=== PATIENT | female | born 1990 | race African-American/Black ===

== ENCOUNTER 2018-02-17 09:07 | Observation (INO) | payer SELFPAY ==
[~2018-02-17] VITALS: Ht 162.6 cm; Wt 62.7 kg
[~2018-02-17 09:07] MED LIST: ACETTAB3 OR; AMOXICILLIN500 MG OR; AMOXICILLIN500 MG PO; AMOXICILLIN875 MG OR; CIPROFLOXACN500 MG PO; DICLEGIS1 TAB PO; DOXYCYCL HYC100 M3 PO; FERROUS SULF325 M1 PO; IBUPROFEN600 MG PO; IMPLANON68 MG SC; K-PHO1 PO; LORTAB 7.5 PO; MACRODANTIN100 MG PO; METHERGINE0.2 MG PO; NAPROSYN500 MG OR; NO CURRENT MEDS; NO MEDS; PAROXETINE10 MG PO; PHENERGAN25 MG/TAB PO; PRENATAL1 TA1; PREVACID30 M1 PO; PROMETHAZINE25 M1 RE; ULTRAM50 M1 PO; ZOFRAN ODT4 MG PO
--- NOTE | 2018-02-17 09:08 | NUR ---
to room 12 with steady gait
--- NOTE | 2018-02-17 09:31 | NUR ---
PT REPORTS NOW FEELING BETTER, PHONATING CLEARLY AND MANAGING SECRETIONS WITHOUT DIFFICULTY
--- NOTE | 2018-02-17 09:46 | NUR ---
REPORT TO MT DOWNS RN, CARE RELINQUISHED
[2018-02-17 09:55] LABS: IMMATURE GRANULOCYTES 0.2 % (0.0-5.0); MEAN CELL VOLUME 74.7 fL CALC (80.0-100.0); MEAN CORPUSCULAR HGB 26.4 pG CALC (26.0-32.0); MEAN CORPUSCULAR HGB CONC 35.4 g/L CALC (32.0-36.0); NEUT# 5.08 thou/uL (2.00-7.15); RED BLOOD COUNT 4.58 mill/uL (4.20-5.60)
[2018-02-17 09:57] LABS: HEMATOCRIT 34.2 % (37.0-47.0); HEMOGLOBIN 12.1 g/dl (12.0-16.0)
--- NOTE | 2018-02-17 10:11 | NUR ---
PT STATES IMPROVEMENT IN STATUS, NO WORSENING.
[2018-02-17 10:22] LABS: ANION GAP 17 (6-22 (CALC)); BUN 16 mg/dL (7-17); BUN/CREATININE RATIO 29 (12-20 (CALC)); CARBON DIOXIDE 24 mmol/l (22-30); CHLORIDE 104 mmol/l (95-108); CREATININE 0.6 mg/dL (0.5-1.0); GFR > 60 ML/MIN (>=60 (CALC)); GFR FOR AFR.AMER. > 60 ML/MIN (>=60 (CALC)); POTASSIUM 4.2 mmol/l (3.5-5.1); SODIUM 141 mmol/l (137-146)
--- NOTE | 2018-02-17 11:20 | NUR ---
PT ARRIVED TO THE UNIT VIA WC, PT AMBULATED TO THE DIGITAL SCALE AND THEN TO THE BED, PT AMBULATED WITH A STRONG STEADY GAIT, PT ORIENTED TO THE ROOM, MONITORING EQUIPMENT AND CALL [place] PRIOR TO MONITORING EQUIPMENT BEING APPLIED, PT VERBALIZED UNDERSTANDING, PT A & O X3, PERRL, MINIMAL SWELLING OF THE TONGUE NOTED AT THIS TIME, WILL CONTINUE TO MONITOR PT CLOSELY FOR INCREASED SWELLING, HR 76, RESP. 20, BP 104/56, O2 100% ON RA, LUNG SOUNDS CLEAR IN ALL [place], ABD SOFT, ACTIVE BOWEL SOUNDS, STRONG RADIAL & PEDAL PULSES, 20G LAC IV, SALINE LOCKED, NO REDNESS OR DRAINAGE AT SITE, ADMISSION ASSESSMENT COMPLETE, SEE INTERVENTIONS, SAFETY MEASURES REINFORCED, CALL [place] WITHIN REACH
--- NOTE | 2018-02-17 11:27 | NUR ---
PT TAKEN TO ICU WITHOUT INCIDENT, REPORT WAS TO MANDY DOMINGUEZ.
[2018-02-17 11:42] VITALS: BP 112/61
--- NOTE | 2018-02-17 12:45 | NUR ---
SETUP UP ASSISTANCE PROVIDED WITH LUNCH TRAY
--- NOTE | 2018-02-17 14:20 | NUR ---
PT LAYING IN BED RESTING WITH EYES CLOSED, NO S/S OF DISTRESS, CALL [place] WITHIN REACH
[2018-02-17 14:23] VITALS: BP 107/61
--- NOTE | 2018-02-17 15:17 | NUR ---
PT AMBULATED TO THE BSC WITH A STRONG STEADY GAIT, NO S/S OF DISTRESS, CALL [place] WITHIN REACH
--- NOTE | 2018-02-17 15:45 | NUR ---
FAMILY AT BEDSIDE
[2018-02-17 16:32] VITALS: BP 103/59
--- NOTE | 2018-02-17 17:05 | NUR ---
PT WASHED UP & ASSISTED TO THE RECLINER WITH MAX ASSISTANCE, PT TOLERATED WELL, CALL [place] WITHIN REACH
--- NOTE | 2018-02-17 17:35 | NUR ---
SETUP ASSISTANCE PROVIDED WITH PM MEAL
[2018-02-17 18:00] VITALS: BP 99/43
--- NOTE | 2018-02-17 19:25 | NUR ---
PT. OVER TO MED/SURG AT THIS TIME. STABLE.
--- NOTE | 2018-02-17 19:28 | NUR ---
PT ARRIVED TO FLOOR VIA WHEELCHAIR WITH ICU NURSE. PT AMBULATED TO BED, VITALS OBTAINED BY CHIEF [facility] DIVISION. PT ORIENTED TO ROOM AND CALL LIGHT SYSTEM. PT DENIES PAIN. RESP EVEN AND UNLABORED. LUNGS CLEAR BILAT. ABD SOFT, ACTIVE BOWEL SOUNDS. PEDAL PULSES PALPATED BILAT. IV LAC PATENT; FLUSHED WITHOUT DIFFICULTY. PT REQUEST TO TAKE SHOWER A THIS TIME. FREQUENT ROUNDS MADE. CALL LIGHT WITHIN REACH.
[2018-02-17 19:32] VITALS: BP 107/69
[2018-02-17 23:46] VITALS: BP 112/67
--- NOTE | 2018-02-17 23:55 | NUR ---
PT SLEEPING WITH EYES CLOSED. NO DISTRESS NOTED. TELE ON. RESP EVEN AND UNLABORED. IV PATENT. CALL LIGHT WITHIN REACH.
[2018-02-18 03:51] VITALS: BP 113/64
--- NOTE | 2018-02-18 04:00 | NUR ---
PT WOKE FOR VITALS, ASSESSMENT UNCHANGED. IV PATENT, NO REDNESS OR EDEMA NOTED. TELE ON. CALL LIGHT WITHIN REACH.
--- NOTE | 2018-02-18 07:05 | NUR ---
REPORT RECEIVED FROM RICHELLE FRAGOSO;PT APPEARS TO BE SLEEPING IN SUPINE POSITION,WAKES EASILY TO VERBAL STIMULI;INTRODUCED SELF TO PT AND POC DISCUSSED;PT DENIES ANY CURRENT PAIN OR NEEDS;ENCOURAGED TO CALL FOR ASSISTANCE IF NEEDED;IV SITE PATENT;CALL LIGHT IN REACH;WILL CONTINUE TO MONITOR
[2018-02-18 08:13] VITALS: BP 109/70
--- NOTE | 2018-02-18 08:15 | NUR ---
PT RESTING IN SEMI FOWLERS POSITION;VS OBTAINED AND ASSESSMENT COMPLETED;RESPIRATIONS EVEN AND UNLABORED ON RA,CLEAR LUNG SOUNDS;ABDOMEN SOFT ON PALPATION AND ACTIVE IN ALL 4 QUADRANTS;STRONG PEDAL PULSES;#20G TO LAC INFUSING NS @ 100ML/HR,SITE APPEARS HEALTHY;NO SWELLING NOTED TO THE TONGUE AT THIS TIME;PT DENIES ANY CURRENT PAIN OR NEEDS;INSTUCTED TO CALL FOR ASSISTANCE IF NEEDED;TELE MONITOR IN PLACE;CALL LIGHT IN REACH;WILL CONTINUE TO MONITOR
[2018-02-18 11:09] VITALS: BP 116/72
--- NOTE | 2018-02-18 11:25 | NUR ---
PT RESTING IN SEMI FOWLERS POSITION;RESPIRATIONS EVEN AND UNLABORED ON RA;IV SITE PATENT AND TELE MONITORING IN PLACE;PT DENIES ANY CURRENT PAIN OR NEEDS;ASSESSMENT UNCHANGED AT THIS TIME;ENCOURAGED TO CALL FOR ASSISTANCE IF NEEDED;CALL LIGHT IN REACH;WILL CONTINUE
[2018-02-18] MEDS ORDERED: MEDDOSEPAK PO (12:04)
[2018-02-18] MEDS ORDERED: EPIPEN 2-P0.3 MG/0.3 IM (12:04)
--- NOTE | 2018-02-18 13:20 | NUR ---
ALL DISCHARGE INFORMATION PROVIDED AT THIS TIME,PRESCRIPTIONS DISCUSSED INDEPTH;ALL QUESTIONS ANSWERED;IV SITE REMOVED WITH CATHETER INTACT;PT REFUSES WHEELCHAIR FOR DISCHARGE
--- NOTE | 2018-02-18 13:28 | NUR ---
Discharge instructions given. Patient verbalizes understanding of same. Discharged in stable condition via Ambulatory to Home with family. All belongings sent with pt.
== END 2018-02-18 13:28 | disposition home or self-care (01) | DRG 916 ==
LOC: ED 09:07 → ED-I 09:24 → ED 11:00 → ICU 11:01 → MS2 19:28
PROVIDERS: Family Medicine; ADMIT Internal Medicine; ATTEND Internal Medicine
DX: T78.2XXA Anaphylactic shock, unspecified, initial encounter (principal); F17.210 Nicotine dependence, cigarettes, uncomplicated
CPT/HCPCS: G0378

== ENCOUNTER 2018-04-10 09:20 | Emergency (ER) | payer SELFPAY ==
[~2018-04-10] VITALS: Ht 162.6 cm; Wt 54.5 kg
[~2018-04-10 09:20] MED LIST changes: +EPIPEN 2-P0.3 MG/0.3 IM; +MEDDOSEPAK PO
[2018-04-10] MEDS ORDERED: AUGMENTIN875TAB PO (09:40)
[2018-04-10] MEDS ORDERED: MOTRIN400 MG PO (09:40)
[2018-04-10 10:19] VITALS: BP 125/75
== END 2018-04-10 10:22 | disposition home or self-care (01) | DRG 159 ==
LOC: ED 09:20
DX: K08.89 Other specified disorders of teeth and supporting structures (principal)

== ENCOUNTER 2018-12-02 10:21 | Emergency (ER) | payer SELFPAY ==
[~2018-12-02] VITALS: Ht 162.6 cm; Wt 59.0 kg
[~2018-12-02 10:21] MED LIST changes: +AUGMENTIN875TAB PO; +MOTRIN400 MG PO
[2018-12-02] MEDS ORDERED: AUGMENTIN875TAB PO (10:43)
[2018-12-02 11:20] VITALS: BP 127/81
== END 2018-12-02 11:20 | disposition home or self-care (01) | DRG 159 ==
LOC: ED 10:21
DX: K03.81 Cracked tooth (principal)

== ENCOUNTER 2018-12-05 12:19 | Emergency (ER) | payer SELFPAY ==
[~2018-12-05] VITALS: Ht 162.6 cm; Wt 61.4 kg
[2018-12-05 13:50] LABS: GFR > 60 ML/MIN (>=60 (CALC)); GFR FOR AFR.AMER. > 60 ML/MIN (>=60 (CALC))
[2018-12-05 16:07] VITALS: BP 066/61
== END 2018-12-05 16:12 | disposition home or self-care (01) | DRG 156 ==
LOC: ED 12:19
DX: R07.0 Pain in throat (principal); E04.9 Nontoxic goiter, unspecified
CPT/HCPCS: Q9967

== ENCOUNTER 2019-03-16 17:38 | Emergency (ER) | payer OTHER ==
[~2019-03-16] VITALS: Ht 162.6 cm; Wt 65.0 kg
[2019-03-16 18:11] LABS: HEMATOCRIT 34.2 % (37.0-47.0); HEMOGLOBIN 11.7 g/dl (12.0-16.0); IMMATURE GRANULOCYTES 0.2 % (0.0-5.0); MEAN CELL VOLUME 74.5 fL CALC (80.0-100.0); MEAN CORPUSCULAR HGB 25.5 pG CALC (26.0-32.0); MEAN CORPUSCULAR HGB CONC 34.2 g/L CALC (32.0-36.0); NEUT# 6.83 thou/uL (2.00-7.15); RED BLOOD COUNT 4.59 mill/uL (4.20-5.60); RED CELL DISTRI WIDTH 16.7 % (11.5-15.5)
[2019-03-16 18:23] LABS: ALBUMIN 4.6 g/dL (3.2-5.0); ALKALINE PHOSPHATASE 47 u/l (38-126); ANION GAP 13 (6-22 (CALC)); BILIRUBIN, TOTAL 1.2 mg/dL (0.0-1.4); BUN 8 mg/dL (7-17); BUN/CREATININE RATIO 15 (12-20 (CALC)); CARBON DIOXIDE 25 mmol/l (22-30); CHLORIDE 107 mmol/l (95-108); CREATININE 0.5 mg/dL (0.5-1.0); GFR > 60 ML/MIN (>=60 (CALC)); GFR FOR AFR.AMER. > 60 ML/MIN (>=60 (CALC)); LIPASE 77 u/l (23-300); POTASSIUM 3.6 mmol/l (3.5-5.1); SGOT/AST 57 u/l (14-36); SODIUM 141 mmol/l (137-146); TOTAL PROTEIN 8.3 g/dL (6.3-8.2)
[2019-03-16 19:16] LABS: URINE BILIRUBIN - DIPSTICK NEGATIVE (NEGATIVE); URINE BLOOD DIPSTICK NEGATIVE (NEGATIVE); URINE COLOR YELLOW; URINE GLUCOSE - DIPSTICK NEGATIVE (NEGATIVE); URINE KETONE NEGATIVE (NEGATIVE); URINE LEUK ESTERASE NEGATIVE (NEGATIVE); URINE NITRITE - DIPSTICK NEGATIVE (Negative); URINE PH 8.5 (4.5-8.0); URINE PROTEIN - DIPSTICK NEGATIVE (NEG-TRACE); URINE UROBILINOGEN - DIPSTICK 0.2 E.U./dL (0.2)
[2019-03-16 20:30] VITALS: BP 99/57
== END 2019-03-16 20:30 | disposition home or self-care (01) ==
LOC: ED 17:38
PROVIDERS: Emergency Medicine
DX: R10.13 Epigastric pain (principal); R11.2 Nausea with vomiting, unspecified

== ENCOUNTER 2019-05-29 00:56 | Emergency (ER) | payer OTHER ==
[~2019-05-29] VITALS: Ht 162.6 cm; Wt 67.0 kg
[2019-05-29] MEDS ORDERED: BENADRYL 50MG C50 MG PO (04:37)
[2019-05-29 05:00] VITALS: BP 118/64
[2019-07-12] MEDS ORDERED: PEPCID20 MG PO (20:43)
[2019-07-12] MEDS ORDERED: BENADRYL 25MG C25 MG PO (20:43)
[2019-07-12] MEDS ORDERED: MEDDOSEPAK PO (20:43)
== END 2019-05-29 05:00 | disposition home or self-care (01) ==
LOC: ED 00:56
DX: T78.40XA Allergy, unspecified, initial encounter (principal); X58.XXXA Exposure to other specified factors, initial encounter; R22.0 Localized swelling, mass and lump, head

== ENCOUNTER 2019-07-12 | Emergency (ER) | payer OTHER ==
[~2019-07-12] MED LIST changes: +BENADRYL 50MG C50 MG PO
[2019-07-12] MEDS ORDERED: BENADRYL 25MG C25 MG PO ×2 (20:43)
[2019-07-12] MEDS ORDERED: PEPCID20 MG PO ×2 (20:43)
[2019-07-12] MEDS ORDERED: MEDDOSEPAK PO ×2 (20:43)
== END 2019-07-12 20:55 | disposition home or self-care (01) ==
DX: T78.40XA Allergy, unspecified, initial encounter (principal); X58.XXXA Exposure to other specified factors, initial encounter

== ENCOUNTER 2020-01-05 12:27 | Emergency (ER) | payer OTHER ==
[~2020-01-05] VITALS: Ht 162.6 cm; Wt 60.9 kg
[~2020-01-05 12:27] MED LIST changes: +BENADRYL 25MG C25 MG PO; +PEPCID20 MG PO
[2020-01-05] MEDS ORDERED: AZITHROMYCIN500 MG PO (14:47)
[2020-01-05 15:45] VITALS: BP 111/56
== END 2020-01-05 15:45 | disposition home or self-care (01) ==
LOC: ED 12:27
DX: J02.9 Acute pharyngitis, unspecified (principal)

== ENCOUNTER 2020-01-25 16:34 | Emergency (ER) | payer OTHER ==
[~2020-01-25] VITALS: Ht 162.6 cm; Wt 75.0 kg
[~2020-01-25 16:34] MED LIST changes: +AZITHROMYCIN500 MG PO
[2020-01-25 18:38] LABS: HEMATOCRIT 30.8 % (37.0-47.0); HEMOGLOBIN 10.8 g/dl (12.0-16.0); IMMATURE GRANULOCYTES 0.3 % (0.0-5.0); MEAN CORPUSCULAR HGB 26.7 pG CALC (26.0-32.0); MEAN CORPUSCULAR HGB CONC 35.1 g/dL CAL (32.0-36.0); NEUT# 5.96 thou/uL (2.00-7.15); RED BLOOD COUNT 4.05 mill/uL (4.20-5.60); RED CELL DISTRI WIDTH 15.8 % (11.5-15.5)
[2020-01-25 18:41] LABS: URINE BILIRUBIN - DIPSTICK NEGATIVE (NEGATIVE); URINE BLOOD DIPSTICK NEGATIVE (NEGATIVE); URINE COLOR YELLOW; URINE GLUCOSE - DIPSTICK NEGATIVE (NEGATIVE); URINE KETONE NEGATIVE (NEGATIVE); URINE LEUK ESTERASE TRACE (NEGATIVE); URINE NITRITE - DIPSTICK NEGATIVE (Negative); URINE PH 7.5 (4.5-8.0); URINE PROTEIN - DIPSTICK NEGATIVE (NEG-TRACE); URINE SPECIFIC GRAVITY 1.025
[2020-01-25 18:54] LABS: ALBUMIN 4.8 g/dL (3.2-5.0); ALKALINE PHOSPHATASE 46 u/l (38-126); ANION GAP 12 (6-22 (CALC)); BILIRUBIN, TOTAL 1.3 mg/dL (0.0-1.4); BUN 6 mg/dL (7-17); BUN/CREATININE RATIO 12 (12-20 (CALC)); CARBON DIOXIDE 24 mmol/l (22-30); CHLORIDE 102 mmol/l (95-108); CREATININE 0.5 mg/dL (0.5-1.0); GFR > 60 ML/MIN (>=60 (CALC)); GFR FOR AFR.AMER. > 60 ML/MIN (>=60 (CALC)); LIPASE 69 u/l (23-300); POTASSIUM 3.5 mmol/l (3.5-5.1); SGOT/AST 19 u/l (14-36); SODIUM 134 mmol/l (137-146); TOTAL PROTEIN 7.9 g/dL (6.3-8.2)
[2020-01-25] MEDS ORDERED: ONDANSETRON4 MG PO (19:41)
[2020-01-25 20:05] VITALS: BP 118/74
== END 2020-01-25 20:05 | disposition home or self-care (01) ==
LOC: ED 16:34
PROVIDERS: Student in an Organized Health Care Education/Training Program
DX: O21.9 Vomiting of pregnancy, unspecified (principal); Z3A.01 Less than 8 weeks gestation of pregnancy; Z20.828 Contact with and (suspected) exposure to other viral communicable diseases

== ENCOUNTER 2020-07-13 11:42 | Emergency (ER) | payer OTHER ==
[~2020-07-13] VITALS: Ht 170.2 cm; Wt 63.6 kg
[~2020-07-13 11:42] MED LIST changes: +ONDANSETRON4 MG PO
[2020-07-13 12:18] LABS: HEMATOCRIT 31.1 % (37.0-47.0); HEMOGLOBIN 10.8 g/dl (12.0-16.0); IMMATURE GRANULOCYTES 0.2 % (0.0-5.0); MEAN CORPUSCULAR HGB 26.4 pG CALC (26.0-32.0); MEAN CORPUSCULAR HGB CONC 34.7 g/dL CAL (32.0-36.0); NEUT# 3.58 thou/uL (2.00-7.15); RED BLOOD COUNT 4.09 mill/uL (4.20-5.60); RED CELL DISTRI WIDTH 14.6 % (11.5-15.5)
[2020-07-13 12:29] LABS: ANION GAP 9 (6-22 (CALC)); BUN 8 mg/dL (7-17); BUN/CREATININE RATIO 13 (12-20 (CALC)); CARBON DIOXIDE 23 mmol/l (22-30); CHLORIDE 108 mmol/l (95-108); CREATININE 0.6 mg/dL (0.5-1.0); GFR > 60 ML/MIN (>=60 (CALC)); GFR FOR AFR.AMER. > 60 ML/MIN (>=60 (CALC)); POTASSIUM 3.3 mmol/l (3.5-5.1); SODIUM 137 mmol/l (137-146)
[2020-07-13 15:08] VITALS: BP 118/73
== END 2020-07-13 15:11 | disposition home or self-care (01) ==
LOC: ED 11:42
PROVIDERS: Family Medicine
DX: R07.9 Chest pain, unspecified (principal)

== ENCOUNTER 2020-12-26 10:06 | Emergency (ER) | payer OTHER ==
[~2020-12-26] VITALS: Ht 170.2 cm; Wt 70.0 kg
[2020-12-26] MEDS ORDERED: CYCLOBENZAPR5 MG PO (12:17)
[2020-12-26 12:24] VITALS: BP 121/79
== END 2020-12-26 12:24 | disposition home or self-care (01) | DRG 204 ==
LOC: ED 10:06
DX: R07.81 Pleurodynia (principal); M54.6 Pain in thoracic spine; M54.5 Low back pain; V43.53XA Car driver injured in collision with pick-up truck in traffic accident, initial encounter

== ENCOUNTER 2021-01-25 16:02 | Emergency (ER) | payer OTHER ==
[~2021-01-25] VITALS: Ht 170.2 cm; Wt 65.9 kg
[~2021-01-25 16:02] MED LIST changes: +CYCLOBENZAPR5 MG PO
[2021-01-25 17:48] VITALS: BP 108/79
== END 2021-01-25 17:48 | disposition home or self-care (01) ==
LOC: ED 16:02
DX: S80.11XA Contusion of right lower leg, initial encounter (principal); W20.8XXA Other cause of strike by thrown, projected or falling object, initial encounter; Y92.512 Supermarket, store or market as the place of occurrence of the external cause

== ENCOUNTER 2021-02-25 10:37 | Emergency (ER) | payer OTHER ==
[2021-02-25 11:31] LABS: IMMATURE GRANULOCYTES 0.1 % (0.0-5.0); MEAN CELL VOLUME 75.4 fL CALC (80.0-100.0); MEAN CORPUSCULAR HGB 26.1 pG CALC (26.0-32.0); MEAN CORPUSCULAR HGB CONC 34.6 g/dL CAL (32.0-36.0); NEUT# 4.7 thou/uL (2.00-7.15); RED BLOOD COUNT 5.05 mill/uL (4.20-5.60); RED CELL DISTRI WIDTH 16.9 % (11.5-15.5)
[2021-02-25 11:38] LABS: HEMATOCRIT 38.1 % (37.0-47.0); HEMOGLOBIN 13.2 g/dl (12.0-16.0)
[2021-02-25 11:49] LABS: ALKALINE PHOSPHATASE 51 u/l (38-126); AMYLASE 101 u/l (30-110); ANION GAP 21 (6-22 (CALC)); BUN 10 mg/dL (7-17); BUN/CREATININE RATIO 17 (12-20 (CALC)); CARBON DIOXIDE 20 mmol/l (22-30); CHLORIDE 103 mmol/l (95-108); CREATININE 0.6 mg/dL (0.5-1.0); GFR > 60 ML/MIN (>=60 (CALC)); GFR FOR AFR.AMER. > 60 ML/MIN (>=60 (CALC)); LIPASE 72 u/l (23-300); POTASSIUM 3.6 mmol/l (3.5-5.1); SGOT/AST 28 u/l (14-36); SODIUM 140 mmol/l (137-146); TOTAL PROTEIN 9.2 g/dL (6.3-8.2)
[2021-02-25 11:51] LABS: HCG SERUM/URINE (NEG/POS) NEGATIVE (NEGATIVE)
[2021-02-25 11:55] LABS: BILIRUBIN, TOTAL 2.1 mg/dL (0.0-1.4)
[2021-02-25 12:49] VITALS: BP 121/62
[2021-02-25] MEDS ORDERED: PREVACID30 M3 PO (13:24)
[2021-02-25] MEDS ORDERED: ONDANSETRON4 MG PO (13:24)
[2021-02-25 14:13] LABS: URINE BILIRUBIN - DIPSTICK NEGATIVE (NEGATIVE); URINE BLOOD DIPSTICK TRACE-INTACT (NEGATIVE); URINE COLOR YELLOW; URINE GLUCOSE - DIPSTICK NEGATIVE (NEGATIVE); URINE KETONE 40 mg/dL (NEGATIVE); URINE LEUK ESTERASE NEGATIVE (NEGATIVE); URINE PROTEIN - DIPSTICK NEGATIVE (NEG-TRACE); URINE UROBILINOGEN - DIPSTICK 0.2 E.U./dL (0.2)
[2021-02-25 14:14] LABS: URINE NITRITE - DIPSTICK NEGATIVE (Negative)
== END 2021-02-25 14:30 | disposition home or self-care (01) ==
LOC: ED 10:37
PROVIDERS: Emergency Medicine
DX: K29.70 Gastritis, unspecified, without bleeding (principal); F17.200 Nicotine dependence, unspecified, uncomplicated; Z20.822 Contact with and (suspected) exposure to COVID-19
CPT/HCPCS: Q9967; S0164

== ENCOUNTER 2021-07-17 07:33 | Emergency (ER) | payer OTHER ==
[~2021-07-17] VITALS: Ht 170.2 cm; Wt 67.0 kg
[~2021-07-17 07:33] MED LIST changes: +PREVACID30 M3 PO
[2021-07-17 08:22] LABS: URINE BILIRUBIN - DIPSTICK NEGATIVE (NEGATIVE); URINE BLOOD DIPSTICK NEGATIVE (NEGATIVE); URINE COLOR YELLOW; URINE GLUCOSE - DIPSTICK NEGATIVE (NEGATIVE); URINE KETONE NEGATIVE (NEGATIVE); URINE LEUK ESTERASE NEGATIVE (NEGATIVE); URINE PROTEIN - DIPSTICK NEGATIVE (NEG-TRACE)
[2021-07-17 08:23] LABS: URINE NITRITE - DIPSTICK NEGATIVE (Negative)
[2021-07-17] MEDS ORDERED: ZPAK PO (08:37)
[2021-07-17] MEDS ORDERED: ROBITUSSIN AC10 ML PO (08:37)
[2021-07-17] MEDS ORDERED: ONDANSETRON4 MG PO (08:37)
[2021-07-17 08:40] VITALS: BP 103/65
== END 2021-07-17 08:51 | disposition home or self-care (01) ==
LOC: ED 07:33
PROVIDERS: Emergency Medicine
DX: U07.1 COVID-19 (principal); F17.200 Nicotine dependence, unspecified, uncomplicated

== ENCOUNTER 2021-07-19 09:42 | Emergency (ER) | payer OTHER ==
[~2021-07-19] VITALS: Ht 170.2 cm; Wt 65.9 kg
[~2021-07-19 09:42] MED LIST changes: +ROBITUSSIN AC10 ML PO; +ZPAK PO
[2021-07-19 11:26] LABS: HEMATOCRIT 38.9 % (37.0-47.0); HEMOGLOBIN 13.7 g/dl (12.0-16.0); IMMATURE GRANULOCYTES 0.2 % (0.0-5.0); MEAN CELL VOLUME 73.8 fL CALC (80.0-100.0); MEAN CORPUSCULAR HGB CONC 35.2 g/dL CAL (32.0-36.0); NEUT# 2.76 thou/uL (2.00-7.15); RED BLOOD COUNT 5.27 mill/uL (4.20-5.60); RED CELL DISTRI WIDTH 15.8 % (11.5-15.5)
[2021-07-19 11:31] LABS: ALBUMIN 4.6 g/dL (3.2-5.0); ALKALINE PHOSPHATASE 49 u/l (38-126); BUN 13 mg/dL (7-17); BUN/CREATININE RATIO 19 (12-20 (CALC)); CHLORIDE 102 mmol/l (95-108); CREATININE 0.7 mg/dL (0.5-1.0); GFR > 60 ML/MIN (>=60 (CALC)); GFR FOR AFR.AMER. > 60 ML/MIN (>=60 (CALC)); POTASSIUM 3.3 mmol/l (3.5-5.1); SGOT/AST 25 u/l (14-36); SODIUM 138 mmol/l (137-146); TOTAL PROTEIN 8.7 g/dL (6.3-8.2)
[2021-07-19 11:36] LABS: ANION GAP 11 (6-22 (CALC)); BILIRUBIN, TOTAL 0.9 mg/dL (0.0-1.4); CARBON DIOXIDE 28 mmol/l (22-30)
[2021-07-19] MEDS ORDERED: ZOFRAN4 M1 PO (12:02)
[2021-07-19 12:50] VITALS: BP 125/81
== END 2021-07-19 12:15 | disposition home or self-care (01) ==
LOC: ED 09:42
PROVIDERS: Family Medicine
DX: U07.1 COVID-19 (principal)

== ENCOUNTER 2023-04-03 07:49 | Emergency (ER) | payer OTHER ==
[2023-04-03] VITALS (18 sets, daily range): BP systolic 86–113; BP diastolic 43–82
[~2023-04-03] VITALS: Ht 170.2 cm; Wt 58.9 kg
[~2023-04-03 07:49] MED LIST changes: +ZOFRAN4 M1 PO
[2023-04-03 08:56] LABS: BASO% 1.1 % (0-3); EOS% 7.1 % (0-8); HEMATOCRIT 34.4 % (37.0-47.0); HEMOGLOBIN 12.1 g/dl (12.0-16.0); IMMATURE GRANULOCYTES 0.1 % (0.0-5.0); LYMPH% 25.4 % (15-41); MEAN CELL VOLUME 74.1 fL CALC (80.0-100.0); MEAN CORPUSCULAR HGB 26.1 pG CALC (26.0-32.0); MEAN CORPUSCULAR HGB CONC 35.2 g/dL CAL (32.0-36.0); MONO% 6.4 % (2-13); NEUT# 4.47 thou/uL (2.00-7.15); NEUT% 59.9 % (42-76); RED BLOOD COUNT 4.64 mill/uL (4.20-5.60); RED CELL DISTRI WIDTH 15.9 % (11.5-15.5)
[2023-04-03 09:11] LABS: ALBUMIN 4.9 g/dL (3.2-5.0); ALKALINE PHOSPHATASE 41 u/l (38-126); BUN 17 mg/dL (7-17); BUN/CREATININE RATIO 30 (12-20 (CALC)); CHLORIDE 105 mmol/l (95-108); CREATININE 0.6 mg/dL (0.5-1.0); GFR FOR AFR.AMER. > 60 ML/MIN (>=60 (CALC)); GFR OTHER RACES > 60 ML/MIN (>=60 (CALC)); POTASSIUM 3.6 mmol/l (3.5-5.1); SGOT/AST 25 u/l (14-36); SODIUM 139 mmol/l (137-146); TOTAL PROTEIN 8.3 g/dL (6.3-8.2)
[2023-04-03 09:12] LABS: ANION GAP 16 (6-22 (CALC)); BILIRUBIN, TOTAL 2.2 mg/dL (0.02-1.3); CARBON DIOXIDE 22 mmol/l (22-30)
[2023-04-03] MEDS ORDERED: ZOFRAN4 MG/TAB PO (11:20)
== END 2023-04-03 12:00 | disposition home or self-care (01) ==
LOC: ED 07:49
PROVIDERS: Family Medicine
DX: R11.0 Nausea (principal); K02.9 Dental caries, unspecified; E86.0 Dehydration; Z86.16 Personal history of COVID-19; Z20.822 Contact with and (suspected) exposure to COVID-19

== ENCOUNTER 2024-07-16 20:20 | Emergency (ER) | payer OTHER ==
[~2024-07-16] VITALS: Ht 170.2 cm; Wt 68.0 kg
[~2024-07-16 20:20] MED LIST changes: +NAPROXEN500 MG PO; +ZOFRAN4 MG/TAB PO
[2024-07-16] MEDS ORDERED: SODIUM CHLORIDE 0.9% 1,000 ML IV STA (21:53)
[2024-07-16] MEDS ORDERED: PROMETHAZINE HCL 25 MG/ML AMP IV ONE (21:55)
[2024-07-16] MEDS ORDERED: ACETAMINOPHEN 500 MG TAB PO ONE (21:55)
[2024-07-16 22:23] LABS: BASO% 0.8 % (0-3); EOS% 0.2 % (0-8); IMMATURE GRANULOCYTES 0.2 % (0.0-5.0); LYMPH% 9.9 % (15-41); MEAN CORPUSCULAR HGB 24.6 pG CALC (26.0-32.0); MEAN CORPUSCULAR HGB CONC 35.5 g/dL CAL (32.0-36.0); MONO% 14.8 % (2-13); NEUT# 3.91 thou/uL (2.00-7.15); NEUT% 74.1 % (42-76); RED BLOOD COUNT 4.47 mill/uL (4.20-5.60); RED CELL DISTRI WIDTH 16.8 % (11.5-15.5)
[2024-07-16 22:33] LABS: ALBUMIN 4.8 g/dL (3.2-5.0); CREATININE 0.7 mg/dL (0.5-1.0); POTASSIUM 3.2 mmol/l (3.5-5.1); TOTAL PROTEIN 8.4 g/dL (6.3-8.2)
[2024-07-16 22:34] LABS: HCG SERUM/URINE (NEG/POS) NEGATIVE (NEGATIVE)
[2024-07-16 22:35] LABS: MEAN CELL VOLUME 69.4 fL CALC (80.0-100.0)
[2024-07-16] MEDS ORDERED: ALUM & MAG HYDROX-SIMETHICONE 30 ML PO ONE (22:55)
[2024-07-16] MEDS ORDERED: KETOROLAC TROMETHAMINE 30 MG/ML SDV IV ONE (22:55)
[2024-07-16] MEDS ORDERED: PROMETHAZINE HY25 M1 PO (23:29)
[2024-07-16] MEDS ORDERED: TAM75CAP PO (23:29)
[2024-07-16] MEDS ORDERED: OSELTAMIVIR PHOSPHATE 75 MG/TAB CAP PO ONE (23:30)
[2024-07-17 00:04] VITALS: BP 121/66
== END 2024-07-17 00:04 | disposition home or self-care (01) ==
LOC: ED 20:20
PROVIDERS: Family Medicine
DX: J10.1 Influenza due to other identified influenza virus with other respiratory manifestations (principal); Z20.822 Contact with and (suspected) exposure to COVID-19; Z86.16 Personal history of COVID-19
CPT/HCPCS: J2550